=== PATIENT | female | born 1950 | race African-American/Black ===

== ENCOUNTER 2017-06-09 07:45 | Day surgery (SDC) | payer BC, OTHER ==
[2017-06-06 10:14] VITALS: BMI 33.0
[2017-06-09] MEDS ORDERED: LIDOCAINE HCL/PF 2% SDV 5ML VIAL ONE (07:49)
[2017-06-09] MEDS ORDERED: PROPOFOL 20 ML ONE ×2 (07:49)
[2017-06-09 08:00] VITALS: TEMP 97.7
[2017-06-09 09:46] VITALS: BP 112/60; PULSE 60
== END 2017-06-09 09:50 | disposition home or self-care (01) ==
LOC: FASU-ENDO 07:45
PROVIDERS: ATTEND Internal Medicine Gastroenterology
PROC: 0DJD8ZZ Inspection of Lower Intestinal Tract, Via Natural or Artificial Opening Endoscopic (ICD-10-PCS; principal; 2017-06-09 08:57)
DX: Z86.010 Personal history of colon polyps (principal)

== ENCOUNTER 2023-09-12 08:53 | Day surgery (SDC) | payer OTHER ==
[2023-09-09 10:04] VITALS: BMI 33.4
[2023-09-12 10:32] VITALS: RESP 20; TEMP 97.7
[2023-09-12 10:59] VITALS: BP 133/67; PULSE 66
== END 2023-09-12 10:50 | disposition home or self-care (01) ==
LOC: FASU-ENDO 08:53
PROVIDERS: ATTEND Internal Medicine Gastroenterology
PROC: 0DBH8ZX Excision of Cecum, Via Natural or Artificial Opening Endoscopic, Diagnostic (ICD-10-PCS; principal; 2023-09-12 09:59)
DX: Z12.11 Encounter for screening for malignant neoplasm of colon (principal); D12.0 Benign neoplasm of cecum; K57.30 Diverticulosis of large intestine without perforation or abscess without bleeding; Z86.010 Personal history of colon polyps
CPT/HCPCS: 88305-TC